=== PATIENT | female | born 1980 | race Two or more races ===

== ENCOUNTER 2025-01-22 16:22 | Emergency (ER) | payer OTHER ==
[~2025-01-22] VITALS: Ht 157.5 cm; Wt 59.0 kg
[2025-01-22] MEDS ORDERED: METOCLOPRAMIDE HCL 10 MG/2 ML VIAL ONE (16:56)
[2025-01-22] MEDS ORDERED: KETOROLAC TROMETHAMINE 15 MG/ML VIAL ONE (16:56)
[2025-01-22] MEDS ORDERED: ACETAMINOPHEN ES 500 MG TABLET ONE (16:56)
[2025-01-22] MEDS: IV NS 0.9% 1,000 ML BAG IV ONE (17:22)
[2025-01-22] MEDS: ACETAMINOPHEN ES 500 MG TABLET PO ONE (17:24)
[2025-01-22] MEDS: KETOROLAC TROMETHAMINE 15 MG/ML VIAL IV ONE (17:25)
[2025-01-22] MEDS: METOCLOPRAMIDE HCL 10 MG/2 ML VIAL IV ONE (17:26)
[2025-01-22 17:28] LABS: CALCIUM, SERUM 8.9 mg/dL (8.5-10.1); CREATININE 0.8 mg/dL (0.6-1.3); SODIUM SERUM 144.0 mmol/L (136-145); UREA NITROGEN, BLOOD 5.0 mg/dL (7-18)
[2025-01-22 17:33] LABS: PLATELET COUNT (AUTO) 214 K/uL (150-450); RED BLOOD CELL COUNT(AUTO) 5.00 MIL/uL (4.0-5.2); RED CELL DISTRIBUTION WIDTH 17.1 % (11.5-15.0); WHITE BLOOD COUNT (AUTO) 7.8 K/uL (4.3-11.0)
[2025-01-22] MEDS ORDERED: METO-295 PO (18:08)
[2025-01-22] MEDS ORDERED: DIPH25CA83 PO (18:08)
[2025-01-22 18:42] LABS: PREGNANCY TEST URINE QUAL NEGATIVE (NEGATIVE)
[2025-01-22 19:22] VITALS: BP 128/91; TEMP 98.3; O2SAT 99
== END 2025-01-22 19:00 | disposition home or self-care (01) ==
LOC: ER 16:30
DX: G43.909 Migraine, unspecified, not intractable, without status migrainosus (principal); M94.0 Chondrocostal junction syndrome [Tietze]; G89.29 Other chronic pain
CPT/HCPCS: 99285; 96374; 71045; 96361; 96375; 93005 ×2; 85025; 80048; 84703; 36415; J1885; J2765; J7030; J1200